=== PATIENT | male | born 1980 | race Caucasian/White ===

== ENCOUNTER 2016-04-19 16:39 | Emergency (ER) | payer MEDICAID ==
[~2016-04-19] VITALS: Wt 70.0 kg
[2016-04-19] MEDS ORDERED: HC1C30 TOP (17:41)
[2016-04-19] MEDS ORDERED: CLOT30CR24 TOP (17:41)
--- NOTE | 2016-04-19 17:44 | ERD ---
ER Documentation Chief Complaint Date/Time DATE: 04/19/16 TIME: 17:43 Chief Complaint penile pain and redness with a rash for 1 week HPI This 35-year-old male presents with irritation and itching on his penis for last week. He denies any penile discharge or dysuria fevers. Denies any vesicles or significant pain. ROS All systems reviewed and are negative except as per history of present illness. Medications Home Meds Active Scripts Hydrocortisone* Topical (Hydrocortisone* Topical) 1%-28.35 Gm Cream..g., 1 APPLIC TOP Q6 Y for ITCHING for 7 Days, #1 TUB Prov:LYN MARTINEZ MD 04/19/16 Clotrimazole* (Clotrimazole* AF) 1% - 30 Gm Cream.gm., 1 APPLIC TOP BID for 10 Days, TUB Prov:LYN MARTINEZ MD 04/19/16 Physical Exam Vitals Vital Signs Date Time Temp Pulse Resp B/P Pulse Ox O2 Delivery O2 Flow Rate FiO2 04/19/16 16:54 98.5 73 20 140/81 98 Physical Exam Const: [] Head: Atraumatic Eyes: Normal Conjunctiva ENT: Normal External Ears, Nose and Mouth. Neck: Full range of motion..~ No meningismus. Resp: Clear to auscultation bilaterally Cardio: Regular rate and rhythm, no murmurs Abd: Soft, non tender, non distended. Normal bowel sounds Skin: No petechiae or rashes Back: No midline or flank tenderness Ext: No cyanosis, or edema Neur: Awake and alert Psych: Normal Mood and Affect Child exam session some redness and irritation on the glans an uncircumcised male extending to the distal shaft. He does have an adhesion of the foreskin to the underside of the glans. Procedures/MDM Patient presents with signs and symptoms of balanitis. Signs and symptoms do not suggest urethritis, acute abdomen, cellulitis. He does have a small effusion is requesting that we cut the adhesion but I am recommending follow-up with urologist for this. Patient was advised to return for fevers, vomiting, vomiting, new or worsening symptoms. He will be treated with hydrocortisone for 1 week and Lotrimin for 10 days at home. Departure Diagnosis: Primary Impression: Balanitis Condition: Stable Patient Instructions: Balanitis Referrals: ROSELYN FERRIS MD [facility],MARIO ALBERTO Goodman MD [facility] () Usted se grimes hecho un examen mdico de control que le indica que no est en pablo condicin que requiera tratamiento urgente en el Departamento de Emergencia. Un estudio ms profundo y el tratamiento de kerns condicin pueden esperar sin ningn riesgo hasta que usted sea atendida/o en el consultorio de kerns mdico o pablo cl luanne. Es responsabilidad suya arreglar pablo juana para el seguimiento del jayashree. MANEJO DE CONDICIONES NO URGENTES EN EL FUTURO 1) Si usted tiene un mdico de atencin primaria: Usted debera llamar a kerns mdico de atencin primaria antes de venir al departamento de emergencia. Despus de las horas de consultorio, kerns doctor o kerns asociado/a est disponible por telfono. El mdico o enfermero de ricardo en el servicio telefnico puede asesorarle por arlin medio para atender el problema, o jayashree contrario se puede programar pablo juana. 2) Si usted no tiene un mdico de atencin primaria: Llame al mdico o clnica de referencia que aparece abajo abe las horas de consultorio para hacer pablo juana para que le vean. CLINICAS: [facility] [phone] [id number] [facility] [phone] [facility] [phone] [facility] [phone] [facility] [phone] [address] [facility]. [phone] LYN GALLEGOS MD Apr 19, 2016 17:44
== END 2016-04-19 18:12 | disposition home or self-care (01) ==
LOC: FTE 16:39
DX: N48.1 Balanitis (principal)
CPT/HCPCS: 99283